=== PATIENT | female | born 2000 | race Caucasian/White ===

== ENCOUNTER 2022-06-30 17:38 | Emergency (ER) | payer OTHER, SELFPAY ==
--- NOTE | 2022-06-30 17:45 | ECG_ITS ---
Test Reason : CHEST PAIN Blood Pressure : / mmHG Vent. Rate : 083 BPM Atrial Rate : 083 BPM P-R Int : 150 ms QRS Dur : 080 ms QT Int : 372 ms P-R-T Axes : 058 019 048 degrees QTc Int : 437 ms Normal sinus rhythm Normal ECG No previous ECGs available Referred By: Generic ED Physician Electronically Signed By:ARRON HADDAD MD
[2022-06-30 19:42] VITALS: BP 190/91; PULSE 88; RESP 20; TEMP 36.3; O2SAT 95; BMI 33.4
[2022-06-30 20:10] LABS: Hematocrit 39.8 % (37.0-47.0); Hemoglobin 13.2 g/dl (12.0-16.0); Mean Corpuscular HGB Conc 33.2 g/dl (31.0-35.0); Mean Corpuscular Hemoglobin 28.6 pg (27.0-33.0); Mean Corpuscular Volume 86.1 fL (80.0-98.0); Mean Platelet Volume 9.4 fL (9.4-12.3); Platelet Count 379 X10*3/uL (160-400); Red Blood Count 4.62 X10*6/uL (4.20-5.50); Red Cell Distribution Width 11.5 % (11.0-16.0); White Blood Count 8.7 X10*3/uL (4.8-10.8)
[2022-06-30 20:25] LABS: Alanine Aminotransferase 19 U/L (0-31); Albumin Level 4.5 g/dL (3.5-5.0); Alkaline Phosphatase 77 U/L (39-117); Anion Gap 17 (12-20); Aspartate Amino Transferase 19 U/L (5-31); Bilirubin Total 0.8 mg/dL (0.0-1.0); Blood Urea Nitrogen 8 mg/dL (9-16); Calcium 9.8 mg/dL (8.4-10.2); Carbon Dioxide 25 mmol/L (22-29); Chloride 103 mmol/L (96-108); Creatinine Clr Calc Pharmacy 146.5; Estimated Glomerular Filt Rate > 60; Glucose Random 95 mg/dL (60-115); Potassium 4.4 mmol/L (3.3-5.1); Sodium 141 mmol/L (135-145); Total Protein 7.3 g/dL (6.5-8.0)
[2022-06-30 20:33] LABS: Troponin-I High Sensitivity < 3.5 ng/L (<3.5-17.0)
[2022-06-30 23:07] VITALS: BP 144/76; PULSE 91; RESP 18; TEMP 36.8; O2SAT 97
--- NOTE | 2022-06-30 23:20 | ED_ITS ---
HPI - Chest Pain General Chief Complaint: Chest Pain Stated Complaint: Chest pain Time Seen by Provider: 06/30/22 23:11 Source: patient Mode of arrival: ambulatory Limitations: no limitations History of Present Illness HPI narrative: Patient history of anxiety in complaining of chest pain for last 2 months with palpitation seen senior technical manager workup is negative today she comes as pain is been there for last 8 hours pain is localized to mid chest no shortness of breath no cough no radiation of the pain feels tight patient not on any control tablets no history of sudden cardiac in family Review of Systems Review of Systems: Yes all other systems are reviewed and are negative [facility] Social History Social History Advance Directives: No Physical Exam Vital Signs: Vital Signs: Last Vital Signs Temp 98.2 F 06/30/22 23:07 Pulse 91 06/30/22 23:07 Resp 18 06/30/22 23:07 BP 144/76 H 06/30/22 23:07 Pulse Ox 97 06/30/22 23:07 O2 Del Method 06/30/22 23:07 BMI result Body Mass Index 33.4 Appearance: Alert. Oriented X3. No acute distress. Eyes: PERRLA, No Nystagmus ENT: Pharynx normal. Oral Mucosa moist Neck: Normal inspection. Neck supple. CVS: Normal heart rate and rhythm. Pulses normal. No murmur or rub Respiratory: No respiratory distress. Equal air entry bilateral, no wheezing/rales/rhonchi mid chest wall tenderness+ Abdomen: Soft and nontender. Bowel sounds are present, no mass palpable, no CVA tenderness Skin: Skin warm and dry. Normal skin color. Normal skin turgor. Extremities: No lower extremity edema. No calf tenderness Neuro: Oriented X 3. MDM - Chest Pain MDM Narrative Medical decision making narrative: Which were atypical chest pain heart score is 0 labs negative EKG normal discharge patient home Differential Diagnosis Differential diagnosis: Likely atypical chest pain Lab Data Attestation: I reviewed the patient's lab results. Result diagrams: 06/30/22 19:53 06/30/22 19:53 Labs: Lab Results 06/30/22 06/30/22 06/30/22 Range/Units 19:53 19:53 19:53 WBC 8.7 (4.8-10.8) X10*3/uL RBC 4.62 (4.20-5.50) X10*6/uL Hgb 13.2 (12.0-16.0) g/dl Hct 39.8 (37.0-47.0) % MCV 86.1 (80.0-98.0) fL MCH 28.6 (27.0-33.0) pg MCHC 33.2 (31.0-35.0) g/dl RDW 11.5 (11.0-16.0) % Plt Count 379 (160-400) X10*3/uL MPV 9.4 (9.4-12.3) fL Absolute Nucleated RBC 0.000 (0.0-0.012) X10*3/uL Nucleated RBC % (auto) 0.0 (0.0-0.2) /100WBC Sodium 141 (135-145) mmol/L Potassium 4.4 (3.3-5.1) mmol/L Chloride 103 (96-108) mmol/L Carbon Dioxide 25 (22-29) mmol/L Anion Gap 17 (12-20) BUN 8 L (9-16) mg/dL Creatinine 0.75 (0.5-1.4) mg/dL Estim Creat Clear Calc 146.5 Estimated GFR > 60 Random Glucose 95 (60-115) mg/dL Calcium 9.8 (8.4-10.2) mg/dL Total Bilirubin 0.8 (0.0-1.0) mg/dL AST 19 (5-31) U/L ALT 19 (0-31) U/L Alkaline Phosphatase 77 (39-117) U/L Troponin I High Sens < 3.5 (<3.5-17.0) ng/L Total Protein 7.3 (6.5-8.0) g/dL Albumin 4.5 (3.5-5.0) g/dL ECG Data ECG #1: Attestation: I personally reviewed and interpreted this ECG as follows: Interpretation: Normal sinus rhythm heart rate 83 beats per minute normal intervals normal axis no acute ST-T changes no acute ischemia Discharge Plan Discharge Clinical Impression: Atypical chest pain Patient Disposition: Home, Self-Care Instructions: Chest Pain (ED) Additional Instructions: Your pain is not from the heart likely musculoskeletal Follow with PCP/senior technical manager
--- OUTSIDE RECORDS SUMMARY | 2022-06-30 23:32 | XMS_ITS | Continuity of Care Document ---
:2000 Author Organization [facility] Care Team Providers Name Role Phone [facility] Unavailable Unavailable Problems Combined list of problems from Department of Defense and Veterans Affairs facilities. It does not include entries that were removed or entered in error. Problem Status Onset Problem Type Date of Comments Source Date Resolution Generalized Active Condition DoD anxiety 9 disorder Major Active Condition DoD depressive 9 disorder, recurrent, unspecified Problems of Active Condition DoD adjustment to 9 life-cycle transitions Major Active Condition DoD depressive 9 disorder, recurrent, mild Major Active Condition DoD depressive 8 disorder, single episode, moderate visit for: Inactive Condition DoD follow-up exam joint pain Active Condition DoD fingers Brace Inactive Condition DoD closed fracture Inactive Condition DoD thumb proximal phalanx right proximal physis eye pain Inactive Condition DoD eye symptoms Inactive Condition DoD headache Inactive Condition DoD myalgia and Active Condition DoD myositis other specified Inactive Condition DoD viral disease visit for: Active Condition DoD routine eye exam abdominal pain Active Condition DoD astigmatism Active Condition DoD refractive Active Condition DoD error - myopia atypical chest Inactive Condition Esophageal D oD pain scar tissue vs. cardiac etiology. CXR in ER normal. EKG in ER read as normal although do not have a copy here. EKG obtained in clinic with sinus arrhythmia. Uncertain if EKG has evidence of mobitz I heart block as pt has prolonged R-R intervals which may represent dropped beats. Neg troponin reassuring against ischemic insult. Will also obtain UGI to evaulate for any esophageal abnormalities given pt's h/o foreign body in esophagus. Pain most likely not respiratory in origin given no h/o asthma and no respiratory symptoms. chest pain or Active Condition DoD discomfort pediculosis Active Condition 7 yo female DoD capitis with chronic lice infestation. Will try Ovide lotion and repeat in 1-2 weeks if necessary. Discussed importance of combing out nits first then applying lotion and recombing. Also discussed importance of laudering in hot water cycle. Will treat mother and sister as well (neither have allergies tomedications). Given RX for civilian pharmacy as Ovide not available at [facility] main pharmacy. Will consider Bactrim if fails to responds to double course of Ovide therapy. Need For Inactive Condition DoD Vaccination Hepatitis A Need For Inactive Condition DoD Vaccination Chickenpox (Active) visit for: 4-6 Inactive Condition A: Alexis is DoD year visit a well 6 year old girl. No medical or physical/mental developmental concerns at this time. Given family history of mild allergies in Mom and sister, will monitory at well child visits for allergy symptoms, but none reported at this time. joint pain, Active Condition DoD localized in the hip diarrhea Inactive Condition DoD pharyngitis Inactive Condition Hx suggestive D oD of strep given prolonged sore throat with abd pain/diarrhea and absence of cough/URI sxs plus sick contacts, though exam less convincing. Will send culture and call parents with results and abx if indicated. Discussed supportive care, includ Preventive Inactive Condition Foreign body DoD Medicine right ear canal, Established to ENT for Patient Checkup removal Child 5-11 immediately Years after Peds visit.School forms completed. foreign body Inactive Condition small bead DoD ear removed from RIght eac no other foreign bodies seen- f/u prn Allergies, Adverse Reactions, Alerts Combined list of allergies from Department of Defense and Veterans Affairs facilities. It does not include entries that were removed or entered in error. Substance Category Reaction Severity Reaction Status Date Comments S ource type Reported No Known Drug Drug active 04/11/2008 [facility] Allergies allergy allergy Immunizations Combined list of available immunizations from the Department of Defense and Veterans Affairs facilities. Immunization Series Date Administered Site Reaction Lot CVX Drug St atus Comments Source Given By Number Code Beef Grader Influenza, 11/10/ KIM, () Not I nfluenza DoD injectable, 2019 Given , MDCK, injectabl quadrivalent, e, MDC K, preservative quadriv al ent, preservat mikey meningococcal 2 04/12/ JORDY, [id number] 163 SmithKline c omplet meningoco DoD B vaccine, 2018 ALONSO Gayle (SKB) ed ccal B recombinant, vaccine , OMV, recombina adjuvanted nt, OMV, adjuvante d Human 2 04/12/ JORDY, [id number] 165 Merck (MSD) complet Human DoD Papillomaviru 2018 ALONSO Sánchez ed Pa pilloma s 9-valent virus vaccine 9-valent vaccine hepatitis A 1 04/12/ JORDY, [id number] 83 SmithKline compl et hepatitis DoD vaccine, 2019 ALONSO Sánchez (SKB) ed A pediatric/ado vaccin e, lescent pediatric dosage, 2 /adolesce dose schedule nt dosage, 2 dose schedule rabies 3 01/19/ JORDY, [id number] 18 Sanofi complet rabi es DoD vaccine, for 2019 ALONSO Sánchez Pasteur ([facility]) e d vaccine, intramuscular for injection intramusc RETIRED CODE ular injection RETIRED CODE rabies 2 01/11/ BUCKSON, [id number] 18 Sanofi complet rabi es DoD vaccine, for 2019 ARLENE-ANTONO Pasteur ([facility] ) ed vaccine, intramuscular for injection intramusc RETIRED CODE ular injection RETIRED CODE rabies 1 01/07/ BUCKSON, [id number] 18 Sanofi complet rabi es DoD vaccine, for 2019 ARLENE-ANTONO Pasteur ([facility] ) ed vaccine, intramuscular for injection intramusc RETIRED CODE ular injection RETIRED CODE rabies 2 Transcribed complet rabi es DoD vaccine, for 2019 ([facility]) ed vaccine , intramuscular for injection intramusc RETIRED CODE ular injection RETIRED CODE Human 1 11/25/ SAHA, HASMUKH [id number] 165 Merck (MSD) comp let Human DoD Papillomaviru 2019 M ed Papill marv s 9-valent virus vaccine 9-valent vaccine Influenza, 1 11/25/ MARIA A, HASMUKH [id number] 150 SmithKline co mplet Influenza DoD injectable, 2019 M (SKB) ed , quadrivalent, inject abl preservative e, free quadrival ent, preservat mikey free meningococcal 1 11/25/ HASMUKH SAHA [id number] 163 SmithKli ne complet meningoco DoD B vaccine, 2019 M A (SKB) ed ccal B recombinant, vaccine , OMV, recombina adjuvanted nt, OMV, adjuvante d meningococcal 1 11/25/ HASMUKH SAHA [id number] 136 Novartis complet meningoco DoD oligosacchari 2019 M Pharmaceutica ed ccal de (groups A, l Gladis. (NOV) oligosacc C, Y and haride W-135) (groups diphtheria A, C, Y toxoid and conjugate W-135) vaccine diphtheri (MCV4O) a toxoid conjugate vaccine (MCV4O) meningococcal 1 12/01/ KRISTI, [id number] 114 Sanofi compl et meningoco DoD polysaccharid 2016 JEFFERY Castro (PM C) ed ccal e (groups A, polysac ch C, Y and aride W-135) (groups diphtheria A, C, Y toxoid and conjugate W-135) vaccine diphtheri (MCV4P) a toxoid conjugate vaccine (MCV4P) tetanus 1 12/01/ KRISTI, [id number] 115 SmithKline complet t etanus DoD toxoid, 2017 JEFFERY (SKB) ed toxoi d, reduced reduced diphtheria diphtheri toxoid, and a toxoid , acellular and pertu is acellular vaccine, pertussis adsorbed vaccine, adsorbed tuberculin 1 12/01/ KRISTI, [id number] 96 Sanofi complet tuberculi DoD skin test; 2016 JEFFERY Castro (PMC) ed n skin purified test; protein purified derivative protein solution, derivativ intradermal e solution, intraderm al hepatitis A 1 LOIS, [id number] 31 Merck (MSD) com plet hepatitis DoD vaccine, 2006 ANTWORN D ed A pediatric vaccine, dosage, pediatric unspecified dosage, formulation unspecif i ed formulati on varicella LOIS, [id number] 21 Merck (MSD) compl et varicella DoD virus vaccine 2006 ANTWORN D ed vi ashutosh vaccine Encounters Combined list of: 1) Encounters from Department of Veterans Affairs facilities going back up to the last 18 months. 2) Encounters from the Department of Defense facilities going back up to 280 months. Location Location Encounter Encounter Reason Attending ADM MT Stat us Disposition Source Details Type Number For Provider Date Date Visit OUTPATIENT [id number] school NIMIT, 04/22 Released w/o [facility]( physicamee THURSTON C Limitations Pe d l per Ref[facility] pt l Cl mother; BE) will bring prime paperwo rk. OUTPATIENT [id number] PENELOPE, 04/22 Released w/o [facility]( ARRON S /2005 Limitations Otolar y ngology Clinic [place] [facility]) OUTPATIENT [id number] PT KENNEDY, 08/11 Released w/o [facility]( EXPOSED ANDRESSA HURDEN /2005 Limitations P ed TO [facility] STREP l Cl AT BE) SCHOOL PER MOM, AND HAS SOME SYMTOMS OF COLD DIRECT TO [id number] MARIA A, 12/21 12/21 DISCHARGE D [facility] VERITO P /2006 HOME MTF FROM OTHER THAN ER OR [facility] OUTPATIENT [id number] PAIN STUMP, 02/23 Released w/o [facility]( WALKING NICHOLAS Limitations Ped /SIDE CK [facility] PAIN l Cl PER PT BE) MOM. OUTPATIENT [id number] 6 YR LABOW, 04/29 Released w/o [facility]( WELL PAT C Limitations Ped CHILD/S Referra CHOOL l Cl PER MOM BE) OUTPATIENT [id number] MONTALVO, 04/29 Released w/o [facility]( CASH C Limitations Immun iz ation [place] [facility]) OUTPATIENT [id number] head TL, 12/30 Relea sed w/o [facility]( lice HEMANT SINKS Limitations Ped per pt [facility] mom.... l Cl . BE) TELE [id number] ED f/u JOSE, 03/30 [facility]( CONSULT OZZY Ped E. Referra l Cl BE) OUTPATIENT [id number] chest JENNY, 04/07 Released w/ o [facility]( pain NATHAN Limitations Ped f/u per VALLEAU Referra mom l Cl BE) OUTPATIENT [id number] eye OLE, 05/16 Releas ed w/o [facility]( exam SYDNI Limitations Opto met ry Clinic [place] [facility]) OUTPATIENT [id number] C/L FU OLE, 06/15 Relea sed w/o [facility]( SYDNI Meredith Limitations Opto met ry Clinic [place] [facility]) OUTPATIENT [id number] STOMACH FARIAS, 06/21 Relea sed w/o [facility]( ISSUES YASHIRA Limitations Ped PER MOM Referra l Cl BE) OUTPATIENT [id number] STOMACH SCHOENDORF 08/16 Rel eased w/o [facility]( ISSUES MAGDALENE Limitations Ped PER PT C [facility]erra MOM l Cl BE) OUTPATIENT [id number] STOMACH TYLER, 09/20 Released w/o [facility]( AID PER ANA Limitations Pe d MOM L [facility] l Cl BE) OUTPATIENT [id number] routine RYAN, 01/17 Release d w/o [facility]( RAVINDER Limitations Optome t VINCENT ry Clinic [place] [facility]) OUTPATIENT [id number] Eye FREED, 10/04 Released w/o [facility]( exam-Vi JULIO H Limitations Op tanja jaimes ry changes Clinic [place] [facility]) OUTPATIENT [id number] fever CONNORZER, 05/22 Released w/o [facility]( per pt AISHWARYA L. Limitations Ped mom Referra l Cl BE) OUTPATIENT [id number] headach SIFUENTES, 10/09 Releas ed w/o [facility]( ecs and DYLLAN E Limitations Pe d woozy Referra perpt l Cl mtoher BE) OUTPATIENT [id number] eye GIRDHER, 01/15 Release d w/o [facility]( exam LEYDI Limitations Optome t ry Clinic [place] [facility]) TELE [id number] Possibl ROMEO, 03/31 [facility]( CONSULT e eye YAMILET Ped injury Referra l Cl BE) OUTPATIENT [id number] eye YETTO, 04/07 Released w/o [facility]( issues CARLITA Limitations Ped per pt Referra mother l Cl BE) OUTPATIENT [id number] EYE SIFUENTES, 02/04 Released w/o [facility]( PROBLEM DYLLAN Limitations Pe d Referra l Cl BE) OUTPATIENT [id number] Astigma ADAM, 02/16 Releas ed w/o [facility]( tism JESSA Limitations Optome t ry Clinic [place] [facility]) OUTPATIENT [id number] STOMACH LONGACRE, 03/30 Rele ased w/o [facility]( PAIN SARAI Limitations Ped LESIA Referra l Cl BE) OUTPATIENT [id number] Notes BHUMIKA, 12/19 Released w /o [facility]( Entered CARLITA Limitations Or thope by: W tio Glover TCHANDLER [facility] 14 a) Dec 2012 1154 ------- ------- ------- ------- -- ER Consult OUTPATIENT [id number] rashida RAMIREZ, 12/27 Release d w/o [facility]( II IVÁN K Limitations Ort hope fractur dic e 1st Cast pip [place] [facility]) OUTPATIENT [id number] f/u INDIA, 01/17 Releas ed w/o [facility]( AMADOR Limitations Ort hope dic Cast [place] [facility]) OUTPATIENT [id number] Notes LOIS, 01/17 Releas ed w/o [facility]( Entered OSMAR P Limitations Orth josias by: cs Cl TIVEY-A BE) YANA THERESA 17 Jan 2013 0751 ------- ------- ------- ------- -- thumb spica splint OUTPATIENT [id number] right PADMA GALINDO 10/12 Relea sed w/o [facility]( hand Limitations Ped Med thumb Home pain Blue BE) OUTPATIENT [id number] follow ELOINA, 10/27 Release d w/o [facility]( up TAMI Limitations Ped Me d sprang Home Blue BE) OUTPATIENT [id number] joint LOIS, 11/08 Releas ed w/o [facility]( pain JONATHAN Limitations Ort hope fingers dic Peds [facility] [facility]) OUTPATIENT [id number] splint AMRIELENA, 11/08 Rele ased w/o [facility]( for Limitations Occupat thumb ional Therapy [place] [facility]) OUTPATIENT [id number] sleep PORTIA, 06/30 Release d w/o [facility]( referra KELLY Limitations Ped Med l / Home having Blue problem BE) with sleepin g OUTPATIENT [id number] sore GROOMES, 08/10 Release d w/o [facility]( throat RICO Limitations Ped Med Home Blue BE) OUTPATIENT [id number] congest YVONNE, 07/25 Releas ed w/o [facility]( ion,lac STEVE /2015 Limitations Pe d Med k of L Home engergy Blue BE) OUTPATIENT [id number] headach PADMA GALINDO 09/13 Rel eased w/o [facility]( es Limitations Ped Med Home Blue BE) TELE [id number] PADMA Otoole 10/24 [facility] Entered Ped Med by: Amee Duenas BE) Oct 2015 1138 ------- ------- ------- ------- -- ED follow up OUTPATIENT [id number] Food in ELICEO, 10/30 Relea sed w/o [facility]( esophag Limitations Ped us DOS SANTOS Gastro causing Cl BE) other injury, subsequ ent encount er OUTPATIENT [id number] sports TOMA, 11/13 Released w/o [facility]( physica WITZARD Limitations Ped Med l exam Home Blue BE) TELE [id number] [facility] ( CONSULT Ped DOS SANTOS Gastro Cl BE) OUTPATIENT [id number] jorge MARINELLI, 12/12 Release d w/o [facility]( pain SAMIRA Limitations Ped Med Home Blue BE) TELE [id number] PADMA Otoole 04/14 [facility]( CONSULT Entered Ped Med by: Home Amee GALINDO M 08 BE) Apr 2016 1058 ------- ------- ------- ------- -- ED follow up TELE [id number] Erik FRIAS 05/06 [facility]( CONSULT Entered Ped Med by: Home MOISESIMATyree SHELDON N BE) 06 May 2016 0943 ------- ------- ------- ------- -- ED F/U OUTPATIENT [id number] ER RODRIGUEZ, 06/02 Released w /o [facility]( follow MITALI J Limitations Ped Med up Home Blue BE) OUTPATIENT [id number] PADMA Duarte 08/07 Rel eased w/o [facility]( s in Limitations Ped Med limbs Home Blue BE) OUTPATIENT [id number] sick/ BARTH, 11/06 Released w/o [facility]( cold PRIYANKA Limitations Ped M ed Home Blue BE) TELE [id number] PADMA Otoole 11/24 [facility]( CONSULT Entered Ped Med by: Home Amee GALINDO M 20 BE) Nov 2016 1100 ------- ------- ------- ------- -- ED follow up OUTPATIENT [id number] follow RODRIGUEZ11/27 Released w/o [facility]( up from [facility] Limitations Ped Med bad Home cough Red BE) (cough for over a month) TELE [id number] Erik ARCHER, 11/27 Referred for [facility]( CONSULT Entered CLIFF Appointment Ped Med by: Home JEAN Al BE) Gerald HESTER 27 Nov 2016 1258 ------- ------- ------- ------- -- Patient NO SHOW appt; Resched ule came late. OUTPATIENT [id number] [facility] KRISTI, 12/01 Release d w/o [facility]( ARLENE- Limitations Imm uniz NO ation Clinic Be) TELE [id number] Erik FRIAS 12/02 [facility]( CONSULT Entered SMOCK Ped Med by: Home RODRIGUEZ, Red BE) [facility] 02 Dec 2016 1013 ------- ------- ------- ------- -- Follow up labs TELE [id number] Erik FRIAS 12/05 [facility]( CONSULT Entered SMOCK Ped Med by: Home RODRIGUEZ, Red BE) [facility] 05 Dec 2016 0939 ------- ------- ------- ------- -- Follow up labs TELE [id number] Erik AVILES 12/05 [facility] ( CONSULT Entered LEIGH Comm by: [facility]/ TRACI Prev ,STEPHE Med Cl N L BE) Nov 2016 1001 ------- ------- ------- ------- -- Leanna friasi emma OUTPATIENT [id number] PADMA Ewing 04/02 Rel eased w/o [facility]( l Limitations Ped Med (double Home booked/ Blue teen) BE) TELE [id number] PADMA Otoole 04/09 [facility] CONSULT Entered Ped Med by: Amee Duenas M BE) Apr 2017 1429 ------- ------- ------- ------- -- Lab results TELE [id number] Notes KAMILLE, 07/09 [facility]( CONSULT Entered Ped M ed by: Tyree Gaspar ASIYA MCKEE) B 09 Jul 2017 1516 ------- ------- ------- ------- -- Referra l Request by Asiya Pena OUTPATIENT [id number] ana m SALMONYVES, 07/10 Rel eased w/o [facility]( d about CARLITA Limitations Ped Med school Home Red BE) OUTPATIENT [id number] PADMA GALINDO 09/08 Relea sed w/o [facility]( annual Limitations Ped Med well Home visit Blue BE) OUTPATIENT [id number] myrna FENTON, 11/10 Relea sed w/o [facility]( hilic Limitations Ped esophag DOS SANTOS Gastro itis Cl BE) TELE [id number] ELICEO, 02/05 [facility] ( CONSULT Ped DOS SANTOS Gastro Cl BE) OUTPATIENT [id number] right HACKETT, 03/19 Released w/o [facility]( ankle CARLOS Limitations Ped M ed sprain Home Red BE) TELE [id number] Erik JACKSON, 10/05 [facility]( CONSULT 5 Entered DANIELLE J Psychia by: JANNY Byers [place] Sep) 2018 1151 ------- ------- ------- ------- -- Called to resched miguel d/t weather OUTPATIENT [id number] sports ROMEO, 11/25 Released w/o [facility]( 5 physica YAMILET D Limitations Adol esc l with ent royce gayle) OUTPATIENT [id number] MARIA A, 11/25 Released w/o [facility]( 2 HASMUKH Limitations Immuni z ation Clinic Be) TELE [id number] Erik LAWRENCE, 01/07 [facility]( CONSULT 7 Entered Adolesc by: RAÚL Cerna 07 Jan 2019 0850 ------- ------- ------- ------- -- Er Visit 019 DOG BITE (ICD9: E906.0) see note OUTPATIENT [id number] KRISTI, 01/07 Release d w/o [facility]( 3 ARLENE- Limitations Imm uniz NO ation Clinic Be) OUTPATIENT [id number] general VIRGIE, 01/10 Rel eased w/o [facility]( 1 health DYLLAN Limitations Adole sc check/c ent holesto [place] ral a) check OUTPATIENT [id number] TATYANALUIZ, 01/11 Release d w/o [facility]( 4 ARLENE-ANT Limitations Imm uniz NO ation Clinic Be) OUTPATIENT [id number] left VAL, 01/14 Released w/o [facility]( 4 quad NAZ Limitations Ado lesc muscle ent pain/li [place] mping a) this week but happend last week OUTPATIENT [id number] JORDY, 01/19 Release d w/o [facility]( 2 ALONSO M Limitations Immu jefe ation Clinic Be) OUTPATIENT [id number] allergi MIRIAM, 01/21 Rel eased w/o [facility]( 0 c SERA K Limitations Aller gy reactio Clinic n to [facility] foods - a) airway swellin g and tinglin g of oral mucosa TELE [id number] Notes MIRIAM, 01/25 [facility]( CONSULT 6 Entered Allergy by: Clinic HERB [place] MIHAELA a) Y 25 Jan 2019 1514 ------- ------- ------- ------- -- patient called, she had stop taken her meds, but she having hives. Please call. TELE [id number] Notes NEAL, 02/28 [facility]( CONSULT 4 Entered Adole sc by: ent RAÚL Maradiaga) M 28 Feb 2019 0835 ------- ------- ------- ------- -- ER Visit 019 right wrist dog bite/ wrist contusi on see note TELE [id number] Notes HOWARD, 03/25 [facility]( CONSULT 7 Entered Adolesc by: VINITA Lindsay 25 Mar 2019 1435 ------- ------- ------- ------- -- Rx refill (Zyrtec ) OUTPATIENT [id number] JORDY, 04/12 Release d w/o [facility]( 7 ALONSO Limitations Immu jefe ation Clinic Be) OUTPATIENT [id number] discuss MANDO, 08/05 Releas ed w/o [facility]( 4 IUD BASSAM Limitations Adol esc ent [place] [facility]) OUTPATIENT [id number] iud MANDO, 09/12 Released w/o [facility]( 6 placeme BASSAM Limitations Ad olesc nt ent [place] [facility]) OUTPATIENT [id number] Notes LEW, 12/05 Released w/o [facility]( 1 Entered DAVID Limitations War by: [facility] [place] HACKETT YBIL M Non-GWO Nov 1004 ------- ------- ------- ------- -- Case Managem ent Screeni ng - Re: CM Registr y Procedures Combined list of: 1) Procedures from Department of Veterans Affairs facilities going back up to the last 18 months, not all VA non-surgical procedures are included; 2) All procedures from the Department of Defense facilities. Procedure Procedure Type Code Date Perfomer Comments Sourc e Psychotherapy Psychotherapy 9387002/11/ LOI, MAYCOL DoD Individual Individual 2017 B Approximately 60 Approximately 60 Minutes Minutes Psychotherapy Psychotherapy 4471801/28/ LOI, MAYCOL [employer] Interactive 2017 B Complexity Complexity Psychotherapy Psychotherapy 1361901/28/ LOI, MAYCOL DoD Individual Individual 2017 B Approximately 60 Approximately 60 Minutes Minutes Psychometric Psychometric 82331 01/28/ MADAY DoD Emotional / Emotional / 2017 OMAR R Behavioral A e ment Behavioral Assessment Psychotherapy Indiv Psychotherapy Indiv 79247 MADAY DoD Approx 45 Min W/ Approx 45 Min W/ 2017 OMAR Kim Medical Evaluation Medical Evaluation & Management & Management Psychotherapy Psychotherapy 1692901/20/ LOI, MAYCOL DoD Interactive Interactive 2017 B Complexity Complexity Psychotherapy Psychotherapy 0847701/20/ STOMKIN, MAYCOL DoD Individual Individual 2018 B Approximately 60 Approximately 60 Minutes Minutes Psychotherapy Psychotherapy 64588 01/15/ STOMKIN, MAYCOL [facility] Interactive Interactive 2018 B Complexity Complexity Psychotherapy Psychotherapy 82991 01/15/ STOMKIN, MAYCOL DoD Individual Individual 2018 B Approximately 60 Approximately 60 Minutes Minutes Psychotherapy Psychotherapy 25545 12/18/ STOMKIN, MAYCOL [facility] Interactive Interactive 2018 B Complexity Complexity Psychotherapy Psychotherapy 45126 12/18/ STOMKIN, MAYCOL DoD Individual Individual 2018 B Approximately 60 Approximately 60 Minutes Minutes Psychometric Psychometric 90113 12/15/ MADAY, DoD Emotional / Emotional / 2018 OMAR R Behavioral A e ment Behavioral Assessment Psychotherapy Psychotherapy 23126 MADAY, Do D Individual Approx Individual Approx 2018 OMAR R 30 Min W/ Medical 30 Min W/ Medical Evaluation & Evaluation & Management Management Psychotherapy Psychotherapy 76429 12/04/ STOMKIN, MAYCOL DoD Individual Individual 2018 B Approximately 60 Approximately 60 Minutes Minutes Psychotherapy Psychotherapy 31538 11/20/ STOMKIN, MAYCOL DoD Individual Individual 2018 B Approximately 60 Approximately 60 Minutes Minutes Psychotherapy Psychotherapy 08421 11/13/ STOMKIN, MAYCOL DoD Individual Individual 2018 B Approximately 60 Approximately 60 Minutes Minutes Psychotherapy Psychotherapy 30958 11/11/ STOMKIN, MAYCOL DoD Individual Individual 2018 B Approximately 60 Approximately 60 Minutes Minutes Psychometric Psychometric 24452 MADAY, DoD Emotional / Emotional / 2017 OMAR R Behavioral A e ment Behavioral Assessment Psychotherapy Psychotherapy 81561 MADAY Do D Individual Approx Individual Approx 2018 OMAR R 30 Min W/ Medical 30 Min W/ Medical Evaluation & Evaluation & Management Management Psychotherapy Psychotherapy 58839 10/23/ STOMKIN, MAYCOL DoD Individual Individual 2018 B Approximately 60 Approximately 60 Minutes Minutes Psychometric Psychometric 73226 MADAY, DoD Emotional / Emotional / 2018 OMAR R Behavioral A e ment Behavioral Assessment Psychotherapy Psychotherapy 05364 10/21/ MADAY Do D Individual Approx Individual Approx 2018 OMAR R 30 Min W/ Medical 30 Min W/ Medical Evaluation & Evaluation & Management Management Psychotherapy Psychotherapy 50472 10/16/ STOMKIN, MAYCOL DoD Individual Individual 2018 B Approximately 60 Approximately 60 Minutes Minutes Psychotherapy Psychotherapy 40204 10/09/ STOMKIN, MAYCOL DoD Individual Individual 2018 B Approximately 60 Approximately 60 Minutes Minutes Psychotherapy Psychotherapy 27483 10/02/ STOMKIN, MAYCOL DoD Individual Individual 2018 B Approximately 60 Approximately 60 Minutes Minutes Psychometric Psychometric 13126 10/02/ MADAY, DoD Emotional / Emotional / 2018 OMAR R Behavioral A e ment Behavioral Assessment Psychiatric Psychiatric 67198 10/02/ Maxim NASSAR Diagnostic Diagnostic 2018 OMAR R Evaluation With Evaluation With Medical Evaluation Medical Evaluation And Management And Management Psychotherapy Psychotherapy 77998 09/25/ STOMKIN, MAYCOL [facility] Individual Individual 2018 B Approximately 60 Approximately 60 Minutes Minutes [facility] Medical 56200 09/22/ LOI, MAYCOL [facility] Psychotherapy Psychotherapy 2018 B Without Patient Without Patient Present Present Psychotherapy Psychotherapy 69997 09/11/ STOMKIN, [facility] Individual Individual 2017 B Approximately 60 Approximately 60 Minutes Minutes Psychotherapy Psychotherapy 38460 08/27/ STOMKIN, MAYCOL [facility] [facility] Individual Individual 2016 B Approximately 60 Approximately 60 Minutes Minutes Psychotherapy Psychotherapy 54917 08/17/ STOMKIN, [facility] Individual Individual 2016 B Approximately 60 Approximately 60 Minutes Minutes Psychotherapy Psychotherapy 02446 08/13/ STOMKIN, [facility] Individual Individual 2016 B Approximately 60 Approximately 60 Minutes Minutes Psychotherapy Psychotherapy 22601 07/28/ STOMKIN, [facility] Individual Individual 2016 B Approximately 60 Approximately 60 Minutes Minutes Psychiatric Psychiatric 74324 07/16/ LOI, MAYCOL [facility] Diagnostic Diagnostic 2016 B Evaluation Evaluation Skin Test Anergy Skin Test Anergy 31343 KRISTI, IPPD; Series #: [facility] Tuberculin Tuberculin 2016 [employer] 1; .1 mL; ID; Intradermal Intradermal Left Arm; [employer]: [employer]; Lot: [id number]; VIS given. Meningococcal [facility], Meningococcal Do D Polysaccharide 2016 [employer] MCV4P; Serie s Diphtheria Toxoid #: 1; .5 mL; Conjugate Vaccine IM; Left Arm ; g: [employer]; Lot: [id number]; VIS given (Matt: 12/06/2015). Tdap Vaccine Tdap Vaccine 10833 KRISTI, Tdap; Series # : [facility] 2016 [employer] 1; .5 mL; IM; Right Arm; [facility]: [employer]; Lot: [id number]; VIS given (Matt: 10/31/14). Immunization Immunization 18934 [facility] Administration By Administration By 2016 [employer] Injection, One Injection, One Vaccine Vaccine Immunization Immunization 72944 [facility] By Administration By 2016 [employer] Injection, Each Injection, Each Additional Vaccine Additional Vaccine Pulse Oximetry Pulse Oximetry 55798 08/10/ GROANTONIO, DoD 2013 RICO Rivera Rapid Antigen Rapid Antigen 54759 08/10/ Do Viri BURNETTE Detection Detection 2013 RICO Rivera Streptococcus Group Streptococcus Group A Beta Hemolytic A Beta Hemolytic Pulse Oximetry Pulse Oximetry 50685 06/30/ [facility], Maxim 2013 KELLY Gayle Physical Therapy 11/09/ Do Viri PEGUERO Education Orthotics 2013 OTIS Bartlett Training Wrist hand finger 11/09/ Viri PEGUERO oD orthosis, without 2013 OTIS Bartlett joint(s), prefabricated item that has been trimmed, bent, molded, a embled, or otherwise customized to fit a specific patient by an individual with expertise [id number] Do Viri ABREU orthosis, without 2012 OSMAR Conroy joint(s), prefabricated, includes fitting and adjustments, [place] [address] 02/26/ ADAM, [facility] Refractive State Refractive State 2011 JESSA Duarte Ophthalmological Ophthalmological 65971 02/26/ ADAM, [facility] New Patient Start New Patient Start 2011 JESSA Duarte [facility] Ophthalmological Ophthalmological 08407 01/15/ [facility], [facility] Prior Patient Start Prior Patient Start 2010 LEYDI S[facility]chez [facility] [place] [address] 01/15/ [facility], [facility] Refractive State Refractive State 2010 LEYDI Sánchez Ophthalmological Ophthalmological 24992 10/04/ [facility], [facility] Prior Patient Start Prior Patient Start 2009 JULIO Glover Intermediate Level Intermediate [place] [address] FREED, [facility] Refractive State Refractive State 2009 JULIO Ophthalmological Ophthalmological 56053 01/17/ CONNOR [facility] New Patient Start New Patient Start 2008 RAVINDER [facility] [place] [address] 06/15/ OLE, DoD Fitting Bilateral Fitting Bilateral 2007 SYDNI Meredith Corneal Lenses (Not Corneal Lenses (Not For Aphakia) For Aphakia) [place] [address] OLE, DoD Refractive State Refractive State 2007 SYDNI Meredith Ophthalmological Ophthalmological 38128 05/16/ OLE, DoD Prior Patient Start Prior Patient Start 2007 SYDNI Meredith [facility] Electrocardiogram Electrocardiogram 03675 04/07/ Maxim ALVARADO 2007 NATHAN PRUITT Immunization Immunization 63588 04/30/ Maxim MONTALVO Administration By Administration By 2007 CASH C Injection, One Injection, One Vaccine Vaccine Immunization [facility] Administration By 2006 CASH C Injection, Each Additional Vaccine Vaccines Viral Vaccines Viral 17030 MONTALVO, [facility] Varicella (Active) Varicella (Active) 2006 CASH C Hep A Vac Ped/Adol Hep A Vac Ped/Adol 16959 , [facility] Dosage (Intramusc Dosage (Intramusc 2006 CASH C Use) 2 Dose Use) 2 Dose Schedule Schedule Weight Recorded 2006 NICHOLAS CK Doppler Arterial Doppler Arterial 77269 Upper Extremity & Upper Extremity & 2006 NICHOLAS CK Digital Temp Digital Temp Measurement Measurement Psychometric Psychometric 32388 [facility], [facility] Emotional / Emotional / 2018 RODRICK Behavioral A e ment Behavioral T Assessment Psychotherapy Indiv Psychotherapy Indiv 33669 [facility] Approx 45 Min W/ Approx 45 Min W/ 2018 RODRICK Medical Evaluation Medical Evaluation T & Management & Management Hep A Vac Ped/Adol Hep A Vac Ped/Adol 65914 , He p A ped/adol, [facility] Dosage (Intramusc Dosage (Intramusc 2018 ALONSO M 2 do se (18 yrs Use) 2 Dose Use) 2 Dose and younger); Schedule Schedule Series #: 1; 0.5 mL; IM; Right Arm; Mfg: [employer]; Lot: [id number]; VIS given (Matt: 03/26/2016). Meningococcal Meningococcal 00359 , Meningococca l DoD Vaccine B Vaccine B 2018 ALONSO Sánchez B, OMV Recombinant Protein Recombinant Protein (Bexsero); And Outer Membrane And Outer Membrane Se sarahi #: 2; Vesicle Vesicle 0.5 mL; IM; Left Arm; Mfg: [employer]; Lot: [id number]; VIS given (Matt: 04/15/2016). Human Papilloma Human Papilloma 30752 , HPV9; Se sarahi #: DoD Virus Vaccine, Virus Vaccine, 2019 ALONSO M 2; 0.5 mL; IM; Nonavalent Nonavalent Left Arm; Mfg: Merck; Lot: [id number]; VIS given (Matt: 08/08/2016). Immunization Immunization 43106 [facility], [facility] Administration By Administration By 2018 ALONSO M Injection, One Injection, One Vaccine Vaccine Immunization Immunization 92251 [facility], [facility] Administration By Administration By 2018 ALONSO M Injection, Each Injection, Each Additional Vaccine Additional Vaccine Psychotherapy Group Psychotherapy Group 2030302/23/ LOVERN, DoD Interactive Interactive 2018 DANIELLE E Psychotherapy Group Psychotherapy Group 3738302/09/ LOVERN, [facility] Interactive Interactive 2018 DANIELLE E Psychometric Psychometric 17119 01/27/ STOMKIN, MAYCOL D oD Emotional / Emotional / 2018 B Behavioral A e ment Behavioral Assessment Psychotherapy Psychotherapy 2654201/27/ STOMKIN, MAYCOL DoD Individual Individual 2018 B Approximately 60 Approximately 60 Minutes Minutes Psychotherapy Psychotherapy 3207301/27/ STOMKIN, MAYCOL DoD Interactive Interactive 2018 B Complexity Complexity Psychotherapy Group Psychotherapy Group 8172501/26/ STOMKIN, A NN DoD Interactive Interactive 2018 B Psychotherapy Psychotherapy 5593901/21/ STOMKIN, MAYCOL DoD Interactive Interactive 2018 B Complexity Complexity Psychotherapy Psychotherapy 9846501/21/ STOMKIN, MAYCOL DoD Individual Individual 2018 B Approximately 60 Approximately 60 Minutes Minutes Psychometric Psychometric 05473 01/21/ STOMKIN, MAYCOL D oD Emotional / Emotional / 2018 B Behavioral A e ment Behavioral Assessment Psychometric Psychometric 26803 [place], DoD Emotional / Emotional / 2018 CHRISTOPHER Behavioral A e ment Behavioral T Assessment Rabies Vaccine For Rabies Vaccine For JORDY, [facility] Intramuscular Use Intramuscular Use 2018 ALONSO M Intr amuscular; Series #: 3; 1.0 mL; IM; Left Arm; Mfg: Sanofi [employer]; Lot: [id number]; VIS given (Matt: 06/12/2009). Immunization Immunization 20627 [facility], [facility] Administration By Administration By 2018 ALONSO M Injection, One Injection, One Vaccine Vaccine Psychotherapy Indiv Psychotherapy Indiv 9166201/17/ [place], [facility] Approx 45 Min W/ Approx 45 Min W/ 2018 CHRISTOPHER Medical Evaluation Medical Evaluation T & Management & Management Psychotherapy Psychotherapy 4870901/14/ STOMKIN, MAYCOL DoD Interactive Interactive 2018 B Complexity Complexity Psychotherapy Psychotherapy 7318801/14/ STOMKIN, MAYCOL DoD Individual Individual 2018 B Approximately 60 Approximately 60 Minutes Minutes Psychotherapy Group Psychotherapy Group 0425101/12/ STOMKIN, A NN DoD Interactive Interactive 2018 B Rabies Vaccine For Rabies Vaccine For [facility] [place] [facility] Intramuscular Use Intramuscular Use 2018 ARLENE-ANTONO I ntramuscular; Series #: 2; 1.0 mL; IM; Left Arm; Mfg: Sanofi P[employer]; Lot: [id number]; VIS given (Matt: 06/12/2009). Immunization Immunization [facility] [place], [facility] Administration By Administration By 2018 ARLENE-ANTONO Injection, One Injection, One Vaccine Vaccine Rabies Vaccine For Rabies Vaccine For [facility] [place] [facility] Intramuscular Use Intramuscular Use 2018 [facility] I ntramuscular; Series #: 1; 1.0 mL; IM; Right Arm; Mfg: Sanofi P[employer]; Lot: [id number]; VIS given (Matt: 06/12/2009). Immunization [facility]ization [facility] Administration By Administration By 2018 ARLENE-ANTONO Injection, One Injection, One Vaccine Vaccine Psychotherapy Group Psychotherapy Group 12653 12/15/ CARRINGTON [facility] Interactive Interactive 2018 DANIELLE E Psychotherapy Group Psychotherapy Group 93050 12/01/ LOI, A [facility] Interactive Interactive 2018 B Physician Services Physician Services 71170 11/29/ ROMEO [facility] Special Review / Special Review / 2018 D Reporting Of Reporting Of Patient Status Patient Status [place] [address] 11/29/ ROMEO YAMILET [facility] Visual Acuity, Visual Acuity, 2018 D Quantitative, Quantitative, Bilateral Bilateral Psychotherapy Psychotherapy 79273 11/26/ LOI, MAYCOL [facility] Individual Individual 2018 B Approximately 60 Approximately 60 Minutes Minutes Psychotherapy Psychotherapy 29179 11/26/ LOI MAYCOL [facility] Interactive Interactive 2018 B Complexity Complexity Immunization Immunization 1610111/25/ HASMUKH SAHA oD Administration By Administration By 2018 M Injection, One Injection, One Vaccine Vaccine Immunization Immunization 07319 11/25/ HASMUKH SAHA oD Administration By Administration By 2018 M Injection, Each Injection, Each Additional Vaccine Additional Vaccine Human Papilloma Human Papilloma 25545 11/25/ HASMUKH SAHA HPV9; Series #: [facility] Virus Vaccine, Virus Vaccine, 2019 M 1; .5 mL; IM; Nonavalent Nonavalent Right Arm; Mfg: Merck; Lot: [id number]; VIS given (Matt: 08/08/2016). Influenza Split Influenza Split 54465 MARIA A, HASMUKH Influ atif, DoD Virus Vaccine IM Virus Vaccine IM 2019 M Inj., quad., Preserv Free 0.5mL Preserv Free 0.5mL pr eservative Dosage Quadrivalent Dosage Quadrivalent free (Fluarix); Series #: 1; .5 mL; IM; Right Arm; Mfg: [employer]; Lot: [id number]; VIS given (Matt: 04/13/2015). Meningococcal (A, 11/25/ MARIA A, HASMUKH Meningoco ccal [facility] C, Y, W-135) 2019 M MCV4O; Series Oligosacch #: 1; .5 mL; Diphtheria Toxoid IM; Left Arm ; Conj Vacc Mfg: [employer]; Lot: [id number]; VIS given (Matt: 12/06/2015). Meningococcal Meningococcal 21876 MARIA A, HASMUKH Meningoco ccal [facility] Vaccine B Vaccine B 2019 M B, OMV; Series Recombinant Protein Recombinant Protein #: 1; .5 mL; And Outer Membrane And Outer Membrane IM ; Left Arm; Vesicle Vesicle Mfg: [employer]; Lot: [id number]; VIS given (Matt: 04/15/2016). Psychometric Psychometric 15537 MADAY, [facility] Emotional / Emotional / 2018 OMAR R Behavioral A e ment Behavioral Assessment Psychotherapy Psychotherapy 94538 Do MADAY D Individual Approx Individual Approx 2019 OMAR R 30 Min W/ Medical 30 Min W/ Medical Evaluation & Evaluation & Management Management Psychotherapy Group Psychotherapy Group 51845 11/19/ Amee MONSIVAIS NN DoD Interactive Interactive 2018 B Psychotherapy Psychotherapy 58635 11/12/ LOI, MAYCOL DoD Interactive Interactive 2018 B Complexity Complexity Psychotherapy Psychotherapy 4877611/12/ LOI, MAYCOL DoD Individual Individual 2019 B Approximately 60 Approximately 60 Minutes Minutes Psychotherapy Psychotherapy 48546 11/05/ LOI, MAYCOL Maxim Interactive Interactive 2018 B Complexity Complexity Psychotherapy Psychotherapy 6456211/05/ LOI, MAYCOL Maxim Individual Individual 2019 B Approximately 60 Approximately 60 Minutes Minutes Psychometric Psychometric 39950 MADAY, [facility] Emotional / Emotional / 2018 OMAR R Behavioral A e ment Behavioral Assessment Psychotherapy Psychotherapy 40726 Do Viri NASSAR Individual Approx Individual Approx 2019 OMAR R 30 Min W/ Medical 30 Min W/ Medical Evaluation & Evaluation & Management Management Psychometric Psychometric 13320 10/15/ LOI, MAYCOL Viri oD Emotional / Emotional / 2018 B Behavioral A e ment Behavioral Assessment Psychotherapy Psychotherapy 39856 10/15/ STOMKIN, MAYCOL DoD Interactive Interactive 2019 B Complexity Complexity Psychotherapy Psychotherapy 58089 10/15/ STOMKIN, MAYCOL DoD Individual Individual 2019 B Approximately 60 Approximately 60 Minutes Minutes Psychotherapy Psychotherapy 16531 09/24/ STOMKIN, MAYCOL DoD Individual Individual 2019 B Approximately 60 Approximately 60 Minutes Minutes Psychotherapy Psychotherapy 49556 09/24/ STOMKIN, MAYCOL DoD Interactive Interactive 2019 B Complexity Complexity Psychotherapy Psychotherapy 08859 09/17/ STOMKIN, MAYCOL DoD Individual Individual 2019 B Approximately 60 Approximately 60 Minutes Minutes Psychotherapy Psychotherapy 73548 09/17/ STOMKIN, MAYCOL DoD Interactive Interactive 2018 B Complexity Complexity Psychometric Psychometric 33917 09/17/ LOI, MAYCOL Viri oD Emotional / Emotional / 2018 B Behavioral A e ment Behavioral Assessment Psychometric Psychometric 08451 09/10/ STOMFANNIE, MAYCOL Viri oD Emotional / Emotional / 2018 B Behavioral A e ment Behavioral Assessment Psychotherapy Psychotherapy 19750 09/10/ STOMKIN, MAYCOL DoD Interactive Interactive 2019 B Complexity Complexity Psychotherapy Psychotherapy 61780 09/10/ STOMKIN, MAYCOL DoD Individual Individual 2019 B Approximately 60 Approximately 60 Minutes Minutes Psychotherapy Psychotherapy 74115 09/09/ MADAY, Do Viri Individual Approx Individual Approx 2018 OMAR R 30 Min W/ Medical 30 Min W/ Medical Evaluation & Evaluation & Management Management Psychometric Psychometric 59946 09/09/ MADAY DoD Emotional / Emotional / 2018 OMAR R Behavioral A e ment Behavioral Assessment Psychotherapy Psychotherapy 51614 08/27/ STOMKIN, MAYCOL DoD Interactive Interactive 2017 B Complexity Complexity Psychotherapy Psychotherapy 01307 08/27/ STOMKIN, MAYCOL DoD Individual Individual 2018 B Approximately 60 Approximately 60 Minutes Minutes Psychotherapy Psychotherapy 92027 08/18/ STOMKIN, MAYCOL DoD Interactive Interactive 2018 B Complexity Complexity Psychotherapy Psychotherapy 09605 08/18/ STOMKIN, MAYCOL DoD Individual Individual 2017 B Approximately 60 Approximately 60 Minutes Minutes Psychotherapy Psychotherapy 33548 08/06/ STOMKIN, MAYCOL DoD Individual Individual 2018 B Approximately 60 Approximately 60 Minutes Minutes Psychotherapy Psychotherapy 61789 08/06/ STOMKIN, MAYCOL DoD Interactive Interactive 2018 B Complexity Complexity Psychometric Psychometric 50053 08/04/ MADAY, DoD Emotional / Emotional / 2017 OMAR R Behavioral A e ment Behavioral Assessment Psychotherapy Indiv Psychotherapy Indiv 20052 08/04/ MADAY, DoD Approx 45 Min W/ Approx 45 Min W/ 2018 OMAR R Medical Evaluation Medical Evaluation & Management & Management Psychotherapy Psychotherapy 10418 07/23/ STOMKIN, MAYCOL [facility] Individual Individual 2018 B Approximately 60 Approximately 60 Minutes Minutes Psychotherapy Psychotherapy 40967 07/23/ STOMKIN, MAYCOL [facility] Interactive Interactive 2018 B Complexity Complexity Psychotherapy Psychotherapy 09659 07/16/ STOMKIN, MAYCOL [facility] Individual Individual 2018 B Approximately 60 Approximately 60 Minutes Minutes Psychotherapy Psychotherapy 24378 07/16/ STOMKIN, [facility] Interactive Interactive 2018 B Complexity Complexity Psychotherapy Psychotherapy 20452 06/25/ STOMKIN, MAYCOL [facility] Individual Individual 2018 B Approximately 60 Approximately 60 Minutes Minutes Psychotherapy Psychotherapy 82920 06/25/ STOMKIN, [facility] Interactive Interactive 2018 B Complexity Complexity Psychotherapy Psychotherapy 68952 06/09/ STOMKIN, [facility] Interactive Interactive 2018 B Complexity Complexity Psychotherapy Psychotherapy 34197 06/09/ STOMKIN, [facility] Individual Individual 2018 B Approximately 60 Approximately 60 Minutes Minutes Psychotherapy Psychotherapy 29965 06/02/ STOMKIN, [facility] Interactive Interactive 2018 B Complexity Complexity Psychotherapy Psychotherapy 79974 06/02/ STOMKIN, [facility] Individual Individual 2018 B Approximately 60 Approximately 60 Minutes Minutes Psychotherapy Psychotherapy 74730 05/27/ STOMKIN, [facility] Interactive Interactive 2018 B Complexity Complexity Psychotherapy Psychotherapy 75999 05/27/ STOMKIN, [facility] Individual Individual 2018 B Approximately 60 Approximately 60 Minutes Minutes Psychotherapy Psychotherapy 28511 05/19/ STOMKIN, [facility] Individual Individual 2018 B Approximately 60 Approximately 60 Minutes Minutes Psychotherapy Psychotherapy 49844 05/19/ STOMKIN, [facility] Interactive Interactive 2018 B Complexity Complexity Psychotherapy Psychotherapy 04334 05/12/ STOMKIN, [facility] Individual Individual 2018 B Approximately 60 Approximately 60 Minutes Minutes Psychotherapy Psychotherapy 01594 05/12/ STOMKIN, [facility] Interactive Interactive 2018 B Complexity Complexity Psychometric Psychometric 37527 MADAY, DoD Emotional / Emotional / 2018 OMAR R Behavioral A e ment Behavioral Assessment Psychotherapy Psychotherapy 37227 04/22/ MADAY, Do D Individual Approx Individual Approx 2018 OMAR R 30 Min W/ Medical 30 Min W/ Medical Evaluation & Evaluation & Management Management Psychotherapy Psychotherapy 98566 04/09/ STOMKIN, MAYCOL [facility] Individual Individual 2018 B Approximately 60 Approximately 60 Minutes Minutes Psychotherapy Psychotherapy 99936 04/09/ STOMKIN, [facility] Interactive Interactive 2018 B Complexity Complexity Psychotherapy Psychotherapy 21531 03/17/ STOMKIN, MAYCOL [facility] Interactive Interactive 2018 B Complexity Complexity Psychotherapy Psychotherapy 86764 03/17/ STOMKIN, MAYCOL [facility] Individual Individual 2017 B Approximately 60 Approximately 60 Minutes Minutes Psychometric Psychometric 86456 , DoD Emotional / Emotional / 2017 OMAR R Behavioral A e ment Behavioral Assessment Psychotherapy Indiv Psychotherapy Indiv 33414 , DoD Approx 45 Min W/ Approx 45 Min W/ 2017 OMAR R Medical Evaluation Medical Evaluation & Management & Management Psychotherapy Psychotherapy 75509 02/18/ STOMKIN, MAYCOL [facility] Interactive Interactive 2017 B Complexity Complexity Psychotherapy Psychotherapy 63056 02/18/ STOMKIN, MAYCOL [facility] Individual Individual 2018 B Approximately 60 Approximately 60 Minutes Minutes Psychotherapy Psychotherapy 67666 02/11/ STOMKIN, MAYCOL [facility] Interactive Interactive 2017 B Complexity Complexity [employer] Coordinator Services Corporate Wellness Coordinator Services 05338 Regino GILMORE speculum D oD Intrauterine Device Intrauterine Device BASSAM M was inserted (IUD) Insertion (IUD) Insertion and the cervix Hormone-Releasing Hormone-Releasing was identified. Betadine was used to clean the cervix and a sound was used. After cleansing, sounding to a depth of _8_ centimeters, an intrauterine device was inserted per collar setter overlock's protocol. The string was cut to a 3 centimeters length and a sample of the remaining string was given to the patient for later comparison. The patient tolerated the procedure well, without any S/S of vasovagal responses, pain level 1/10, EBL less than 1 ml. The patient agrees to return for fever, severe lower abdominal cramping, heavy bleeding, or purulent discharge. The patient was counseled to check the strings herself monthly to ensure the IUD has not been displaced. Psychotherapy Indiv Psychotherapy Indiv 82149 FLINT, DoD Approx 45 Min W/ Approx 45 Min W/ ALYSSA Medical Evaluation Medical Evaluation T & Management & Management Case Management, DAVID HACKETT [facility] each 15 minutes M Psychiatric Psychiatric 39230 TESSY HACKETT [facility] Diagnostic Diagnostic A Evaluation Review Evaluation Review of Records and of Records and Reports Reports PSYCHIATRIC EVALUATION OF 2020 HOSPITAL RECORDS, OTHER PSYCHIATRIC REPORTS, PSYCHOMETRIC AND/OR PROJECTIVE TESTS, AND OTHER ACCUMULATED DATA FOR MEDICALDIAGNOSTIC PURPOSES CASE MANAGEMENT, EACH 15 MINUTES 2019 PSYCHOTHERAPY, 45 09/19/ Do D MINUTES WITH 2019 PATIENT WHEN PERFORMED WITH AN EVALUATION AND MANAGEMENT SERVICE (LIST SEPARATELY IN ADDITION TO THE CODE FOR PRIMARY PROCEDURE) INSERTION OF INTRAUTERINE DEVICE 2020 (IUD) URINE TEST, BY VISUAL 2019 COLOR COMPARISON METHODS BRIEF EMOTIONAL/BEHAVIORA 2018 L ASSESSMENT (EG, DEPRESSION INVENTORY, ATTENTION-DEFICIT/H YPERACTIVITY DISORDER [ADHD] SCALE), WITH SCORING AND DOCUMENTATION, PER STANDARDIZED INSTRUMENT HUMAN PAPILLOMAVIRUS 2019 VACCINE TYPES 6, 11, 16, 18, 31, 33, 45, 52, 58, NONAVALENT (9VHPV), 2 OR 3 DOSE SCHEDULE, FOR INTRAMUSCULAR USE GROUP PSYCHOTHERAPY (OTHER THAN OF A 2019 MULTIPLE-FAMILY GROUP) GROUP PSYCHOTHERAPY (OTHER THAN OF A 2019 MULTIPLE-FAMILY GROUP) GROUP PSYCHOTHERAPY (OTHER THAN OF A 2019 MULTIPLE-FAMILY GROUP) INTERACTIVE COMPLEXITY (LIST 2019 SEPARATELY IN ADDITION TO THE CODE FOR PRIMARY PROCEDURE) IMMUNIZATION ADMINISTRATION 2019 (INCLUDES PERCUTANEOUS, INTRADERMAL, SUBCUTANEOUS, OR INTRAMUSCULAR INJECTIONS); 1 VACCINE (SINGLE OR COMBINATION VACCINE/TOXOID) PSYCHOTHERAPY, 45 D MINUTES WITH 2019 PATIENT WHEN PERFORMED WITH AN EVALUATION AND MANAGEMENT SERVICE (LIST SEPARATELY IN ADDITION TO THE CODE FOR PRIMARY PROCEDURE) INTERACTIVE COMPLEXITY (LIST 2019 SEPARATELY IN ADDITION TO THE CODE FOR PRIMARY PROCEDURE) GROUP PSYCHOTHERAPY (OTHER THAN OF A 2019 MULTIPLE-FAMILY GROUP) INTERACTIVE COMPLEXITY (LIST 2019 SEPARATELY IN ADDITION TO THE CODE FOR PRIMARY PROCEDURE) RABIES VACCINE, FOR INTRAMUSCULAR USE 2019 RABIES VACCINE, FOR INTRAMUSCULAR USE 2019 RABIES VACCINE, FOR INTRAMUSCULAR USE 2019 GROUP PSYCHOTHERAPY (OTHER THAN OF A 2019 MULTIPLE-FAMILY GROUP) GROUP PSYCHOTHERAPY (OTHER THAN OF A 2019 MULTIPLE-FAMILY GROUP) INTERACTIVE COMPLEXITY (LIST 2019 SEPARATELY IN ADDITION TO THE CODE FOR PRIMARY PROCEDURE) INFLUENZA VIRUS VACCINE, 2019 QUADRIVALENT (IIV4), SPLIT VIRUS, PRESERVATIVE FREE, 0.5 ML DOSAGE, FOR INTRAMUSCULAR USE SPECIAL REPORTS SUCH INSURANCE 2019 FORMS, MORE THAN THE INFORMATION CONVEYED IN THE USUAL MEDICAL COMMUNICATIONS OR STANDARD REPORTING FORM BRIEF EMOTIONAL/BEHAVIORA 2018 L ASSESSMENT (EG, DEPRESSION INVENTORY, ATTENTION-DEFICIT/H YPERACTIVITY DISORDER [ADHD] SCALE), WITH SCORING AND DOCUMENTATION, PER STANDARDIZED INSTRUMENT INTERACTIVE COMPLEXITY (LIST 2018 SEPARATELY IN ADDITION TO THE CODE FOR PRIMARY PROCEDURE) INTERACTIVE COMPLEXITY (LIST 2018 SEPARATELY IN ADDITION TO THE CODE FOR PRIMARY PROCEDURE) BRIEF EMOTIONAL/BEHAVIORA 2018 L ASSESSMENT (EG, DEPRESSION INVENTORY, ATTENTION-DEFICIT/H YPERACTIVITY DISORDER [ADHD] SCALE), WITH SCORING AND DOCUMENTATION, PER STANDARDIZED INSTRUMENT BRIEF EMOTIONAL/BEHAVIORA 2018 L ASSESSMENT (EG, DEPRESSION INVENTORY, ATTENTION-DEFICIT/H YPERACTIVITY DISORDER [ADHD] SCALE), WITH SCORING AND DOCUMENTATION, PER STANDARDIZED INSTRUMENT INTERACTIVE COMPLEXITY (LIST 2018 SEPARATELY IN ADDITION TO THE CODE FOR PRIMARY PROCEDURE) BRIEF EMOTIONAL/BEHAVIORA 2018 L ASSESSMENT (EG, DEPRESSION INVENTORY, ATTENTION-DEFICIT/H YPERACTIVITY DISORDER [ADHD] SCALE), WITH SCORING AND DOCUMENTATION, PER STANDARDIZED INSTRUMENT PSYCHOTHERAPY, 30 09/09/ Do D MINUTES WITH 2018 PATIENT WHEN PERFORMED WITH AN EVALUATION AND MANAGEMENT SERVICE (LIST SEPARATELY IN ADDITION TO THE CODE FOR PRIMARY PROCEDURE) BRIEF EMOTIONAL/BEHAVIORA 2018 L ASSESSMENT (EG, DEPRESSION INVENTORY, ATTENTION-DEFICIT/H YPERACTIVITY DISORDER [ADHD] SCALE), WITH SCORING AND DOCUMENTATION, PER STANDARDIZED INSTRUMENT PSYCHOTHERAPY, 60 // Do D MINUTES WITH 2018 PATIENT PSYCHOTHERAPY, 60 /10/ Do D MINUTES WITH 2018 PATIENT INTERACTIVE COMPLEXITY (LIST 2017 SEPARATELY IN ADDITION TO THE CODE FOR PRIMARY PROCEDURE) BRIEF EMOTIONAL/BEHAVIORA 2017 L ASSESSMENT (EG, DEPRESSION INVENTORY, ATTENTION-DEFICIT/H YPERACTIVITY DISORDER [ADHD] SCALE), WITH SCORING AND DOCUMENTATION, PER STANDARDIZED INSTRUMENT INTERACTIVE COMPLEXITY (LIST 2017 SEPARATELY IN ADDITION TO THE CODE FOR PRIMARY PROCEDURE) INTERACTIVE COMPLEXITY (LIST 2017 SEPARATELY IN ADDITION TO THE CODE FOR PRIMARY PROCEDURE) INTERACTIVE COMPLEXITY (LIST 2017 SEPARATELY IN ADDITION TO THE CODE FOR PRIMARY PROCEDURE) PSYCHOTHERAPY, 60 // Do D MINUTES WITH 2018 PATIENT PSYCHOTHERAPY, 60 06/01/ Do D MINUTES WITH 2018 PATIENT INTERACTIVE COMPLEXITY (LIST 2017 SEPARATELY IN ADDITION TO THE CODE FOR PRIMARY PROCEDURE) PSYCHOTHERAPY, 60 05/18/ Do D MINUTES WITH 2018 PATIENT PSYCHOTHERAPY, 60 05/11/ Do D MINUTES WITH 2018 PATIENT BRIEF EMOTIONAL/BEHAVIORA 2018 L ASSESSMENT (EG, DEPRESSION INVENTORY, ATTENTION-DEFICIT/H YPERACTIVITY DISORDER [ADHD] SCALE), WITH SCORING AND DOCUMENTATION, PER STANDARDIZED INSTRUMENT INTERACTIVE COMPLEXITY (LIST 2018 SEPARATELY IN ADDITION TO THE CODE FOR PRIMARY PROCEDURE) INTERACTIVE COMPLEXITY (LIST 2018 SEPARATELY IN ADDITION TO THE CODE FOR PRIMARY PROCEDURE) BRIEF EMOTIONAL/BEHAVIORA 2018 L ASSESSMENT (EG, DEPRESSION INVENTORY, ATTENTION-DEFICIT/H YPERACTIVITY DISORDER [ADHD] SCALE), WITH SCORING AND DOCUMENTATION, PER STANDARDIZED INSTRUMENT INTERACTIVE COMPLEXITY (LIST 2018 SEPARATELY IN ADDITION TO THE CODE FOR PRIMARY PROCEDURE) INTERACTIVE COMPLEXITY (LIST 2017 SEPARATELY IN ADDITION TO THE CODE FOR PRIMARY PROCEDURE) BRIEF EMOTIONAL/BEHAVIORA 2018 L ASSESSMENT (EG, DEPRESSION INVENTORY, ATTENTION-DEFICIT/H YPERACTIVITY DISORDER [ADHD] SCALE), WITH SCORING AND DOCUMENTATION, PER STANDARDIZED INSTRUMENT INTERACTIVE COMPLEXITY (LIST 2018 SEPARATELY IN ADDITION TO THE CODE FOR PRIMARY PROCEDURE) UNLISTED SPECIAL SERVICE, PROCEDURE 2018 OR REPORT INTERACTIVE COMPLEXITY (LIST 2017 SEPARATELY IN ADDITION TO THE CODE FOR PRIMARY PROCEDURE) INTERACTIVE COMPLEXITY (LIST 2018 SEPARATELY IN ADDITION TO THE CODE FOR PRIMARY PROCEDURE) INTERACTIVE COMPLEXITY (LIST 2018 SEPARATELY IN ADDITION TO THE CODE FOR PRIMARY PROCEDURE) BRIEF EMOTIONAL/BEHAVIORA 2018 L ASSESSMENT (EG, DEPRESSION INVENTORY, ATTENTION-DEFICIT/H YPERACTIVITY DISORDER [ADHD] SCALE), WITH SCORING AND DOCUMENTATION, PER STANDARDIZED INSTRUMENT PSYCHOTHERAPY, 60 12/01/ Do D MINUTES WITH 2018 PATIENT PSYCHOTHERAPY, 60 11/17/ Do D MINUTES WITH 2018 PATIENT PSYCHOTHERAPY, 60 11/10/ Do D MINUTES WITH 2018 PATIENT BRIEF EMOTIONAL/BEHAVIORA 2018 L ASSESSMENT (EG, DEPRESSION INVENTORY, ATTENTION-DEFICIT/H YPERACTIVITY DISORDER [ADHD] SCALE), WITH SCORING AND DOCUMENTATION, PER STANDARDIZED INSTRUMENT PSYCHOTHERAPY, 60 11/04/ Do D MINUTES WITH 2018 PATIENT PSYCHOTHERAPY, 60 10/22/ Do D MINUTES WITH 2018 PATIENT PSYCHOTHERAPY, 30 10/21/ Do D MINUTES WITH 2018 PATIENT WHEN PERFORMED WITH AN EVALUATION AND MANAGEMENT SERVICE (LIST SEPARATELY IN ADDITION TO THE CODE FOR PRIMARY PROCEDURE) PSYCHOTHERAPY, 60 10/15/ Do D MINUTES WITH 2018 PATIENT PSYCHOTHERAPY, 60 10/07/ Do D MINUTES WITH 2018 PATIENT BRIEF EMOTIONAL/BEHAVIORA 2018 L ASSESSMENT (EG, DEPRESSION INVENTORY, ATTENTION-DEFICIT/H YPERACTIVITY DISORDER [ADHD] SCALE), WITH SCORING AND DOCUMENTATION, PER STANDARDIZED INSTRUMENT PSYCHOTHERAPY, 60 10/01/ Do D MINUTES WITH 2018 PATIENT PSYCHOTHERAPY, 60 09/25/ Do D MINUTES WITH 2018 PATIENT FAMILY PSYCHOTHERAPY 2018 (WITHOUT THE PATIENT PRESENT), 50 MINUTES PSYCHOTHERAPY, 60 09/10/ Do D MINUTES WITH 2018 PATIENT PSYCHOTHERAPY, 60 08/27/ Do D MINUTES WITH 2017 PATIENT PSYCHOTHERAPY, 60 08/17/ Do D MINUTES WITH 2017 PATIENT PSYCHOTHERAPY, 60 08/12/ Do D MINUTES WITH 2017 PATIENT PSYCHOTHERAPY, 60 07/27/ Do D MINUTES WITH 2017 PATIENT PSYCHIATRIC DIAGNOSTIC 2017 EVALUATION IMMUNIZATION ADMINISTRATION 2016 (INCLUDES PERCUTANEOUS, INTRADERMAL, SUBCUTANEOUS, OR INTRAMUSCULAR INJECTIONS); EACH ADDITIONAL VACCINE (SINGLE OR COMBINATION VACCINE/TOXOID) INFECTIOUS AGENT DETECTION BY 2016 NUCLEIC ACID (DNA OR RNA), MULTIPLE ORGANISMS; DIRECT PROBE(S) TECHNIQUE UNLISTED SPECIAL SERVICE, PROCEDURE 2016 OR REPORT THERAPEUTIC,PROPHYL ACTIC,OR DIAGNOSTIC 2015 INJECTION (SPECIFY SUBSTANCE/DRUG);EA ADDITIONAL SEQUENTIAL INTRAVENOUS PUSH OF A NEW SUBSTANCE/DRUG (LIST SEPARATELY IN ADDITION TO CODE FOR PRIMARY PROCEDURE) INFECTIOUS AGENT ANTIGEN DETECTION 2013 BY IMMUNOASSAY WITH DIRECT OPTICAL (IE, VISUAL) OBSERVATION; STREPTOCOCCUS, GROUP A NONINVASIVE EAR OR oD PULSE OXIMETRY FOR 2013 OXYGEN SATURATION; SINGLE DETERMINATION ORTHOTIC(S) MANAGEMENT AND 2014 TRAINING (INCLUDING ASSESSMENT AND FITTING WHEN NOT OTHERWISE REPORTED),UPPER EXTREMITY(IES),LOWE R EXTREMITY(IES) AND/OR TRUNK,INITIAL ORTHOTIC(S) ENCOUNTER,EACH 15 MINUTES APPLICATION OF FINGER SPLINT; 2013 STATIC WRIST HAND FINGER Do D ORTHOSIS, WITHOUT 2013 JOINT(S), PREFABRICATED ITEM THAT HAS BEEN TRIMMED, BENT, MOLDED, ASSEMBLED, OR OTHERWISE CUSTOMIZED TO FIT A SPECIFIC PATIENT BY AN INDIVIDUAL WITH EXPERTISE APPLICATION OF FINGER SPLINT; 2012 STATIC DETERMINATION OF REFRACTIVE STATE 2011 DETERMINATION OF REFRACTIVE STATE 2010 DETERMINATION OF REFRACTIVE STATE 2010 OPHTHALMOLOGICAL SERVICES: MEDICAL 2009 EXAMINATION AND EVALUATION WITH INITIATION OF DIAGNOSTIC AND TREATMENT PROGRAM; COMPREHENSIVE, NEW PATIENT, 1 OR MORE VISITS PRESCRIPTION OF OPTICAL AND 2008 PHYSICAL CHARACTERISTICS OF AND FITTING OF CONTACT LENS, WITH MEDICAL SUPERVISION OF ADAPTATION; CORNEAL LENS, BOTH EYES, EXCEPT FOR APHAKIA DETERMINATION OF REFRACTIVE STATE 2008 ELECTROCARDIOGRAM, oD ROUTINE ECG WITH AT 2008 LEAST 12 LEADS; WITH INTERPRETATION AND REPORT COLLECTION OF VENOUS BLOOD BY 2007 VENIPUNCTURE HEPATITIS A VACCINE (HEPA), 2007 PEDIATRIC/ADOLESCEN T DOSAGE-2 DOSE SCHEDULE, FOR INTRAMUSCULAR USE TEMPERATURE GRADIENT STUDIES 2007 OTHER ESOPHAGOSCOPY 2007 LARYNGOSCOPY AND OTHER TRACHEOSCOPY 2007 REMOVAL OF INTRALUMINAL 2007 FOREIGN BODY FROM ESOPHAGUS WITHOUT INCISION SPECIAL REPORTS SUCH INSURANCE 2005 FORMS, MORE THAN THE INFORMATION CONVEYED IN THE USUAL MEDICAL COMMUNICATIONS OR STANDARD REPORTING FORM EDUCATIONAL SUPPLIES, SUCH 2002 BOOKS, TAPES, AND PAMPHLETS, FOR THE PATIENT'S EDUCATION AT COST TO PHYSICIAN OR OTHER QUALIFIED HEALTH BRIDGE OPENER PNEUMOCOCCAL CONJUGATE VACCINE, 2002 7 VALENT, FOR INTRAMUSCULAR USE VENIPUNCTURE,AGE 3 oD YEARS/OLDER,NECESSI 2001 TATING THE SKILL OF A PHYSICIAN/OTHER QUALIFIED HEALTH BRIDGE OPENER (SEP PROC),FOR DIAGNOSTIC/THERAPEU TIC PURPOSES (NOT TO BE USED FOR ROUTINE VENIPUNCTURE) VARICELLA VIRUS VACCINE ([place]), 2001 LIVE, FOR SUBCUTANEOUS USE EDUCATIONAL SUPPLIES, SUCH 2001 BOOKS, TAPES, AND PAMPHLETS, FOR THE PATIENT'S EDUCATION AT COST TO PHYSICIAN OR OTHER QUALIFIED HEALTH BRIDGE OPENER CULTURE, BACTERIAL; STOOL, AEROBIC, 2001 WITH ISOLATION AND PRELIMINARY EXAMINATION (EG, NATAN, ARBEN), SALMONELLA AND SHIGELLA SPECIES PNEUMOCOCCAL CONJUGATE VACCINE, 2001 7 VALENT, FOR INTRAMUSCULAR USE CATHETERIZATION, URETHRA; SIMPLE 2000 Social History Combined list of available smoking, tobacco, and other social history from [facility]. Social History Type Response Date Comment Source This section is an empty social history section. DoD
--- OUTSIDE RECORDS SUMMARY | 2022-06-30 23:37 | XMS_ITS ---
:2000 Author Care Team Providers Name Role Phone Mariela Almeida Primary Care Provider Unavailable Allergies None recorded. Medications Name Status Start Date Stop Date ? ? fluoxetine 10 mg tablet Active ? Not avai lable Take 1 tablet every day by oral route. Xanax 0.5 mg tablet Active ? Not availabl e Take 1 tablet 3 times a day by oral route as needed. Problems None recorded. Procedures None recorded. Results Lab Results Date Name Specimen Result Interpretation Description Value Range Status Address ? 04/10/2020 CBC W/ Auto ? Wbc 5.4 3.4-10.8 Final [facility] Diff x10e3/uL [facility] [address] [facility] ? ? ? Rbc 4.69 3.77-5.28 Final [facility] x10e6/uL x10e6/uL ([facility]): [address] [facility] ? ? ? Hemoglobin 13.5 g/dL 11.1-15.9 Final [facility] g/dL ([facility]): [address] [facility] ? ? ? Hematocrit 39.8 % 34.0-46.6 Final [facility] % ([facility]): [address] [facility] ? ? ? Mcv 85 fL 79-97 fL Final [facility] ([facility]): [address] [facility] ? ? ? Mch 28.8 pg 26.6-33.0 Final [facility] p pg ([facility]): [address] [facility] ? ? ? Mchc 33.9 g/dL 31.5-35.7 Final [facility] g/dL ([facility]): [address] [facility] ? ? ? Rdw 12.0 % 11.7-15.4 Final [facility] % ([facility]): [address] [facility] ? ? ? Platelets 358 150-450 Final [facility] r[facility] x10e3/uL x10e3/uL ([place]): [address], [place] ? ? ? Neutrophil 52 % not Final [facility] r[facility] s estab. % ([place]): [address], [place] ? ? ? Lymphs 27 % not Final [facility] estab. % ([place]): [address], [place] ? ? ? Monocytes 12 % not Final [facility] p estab. % ([place]): [address], [place] ? ? ? Eos 8 % not Final [facility] estab. % ([place]): [address], [place] ? ? ? Basos 1 % not Final [facility] estab. % ([place]): [address], [place] ? ? ? Immature sheriffs detective ? Cancelled [facility] Cells ([place]): [address], [place] ? ? ? Neutrophil 2.8 1.4-7.0 Final [facility] s x10e3/uL x10e3/uL [facility] (Absolute) [address], [place] ? ? ? Lymphs 1.4 0.7-3.1 Final [facility] (Absolute) x10e3/uL x10e3/uL ([facility] [address], [place] ? ? ? Monocytes( 0.6 0.1-0.9 Final [facility] absolute) x10e3/uL x10e3/uL ([facility]): [address], [place] ? ? ? Eos 0.4 0.0-0.4 Final [facility] (Absolute) x10e3/uL x10e3/uL ([facility] [address], [place] ? ? ? Baso 0.1 0.0-0.2 Final [facility] (Absolute) x10e3/uL x10e3/uL ([facility] [address], [place] ? ? ? Immature 0 % not Final [facility] Granulocyte estab. % ([facility]): s [address], [place] ? ? ? Immature 0.0 0.0-0.1 Final [facility] p Grans (Abs) x10e3/uL x10e3/uL ( [place]): [address], [place] ? ? ? Nrbc sheriffs detective ? Cancelled [facility] ([place]): [address], [place] ? ? ? Hematology sheriffs detective ? [facility]ancelled [facility] Comments: [facility] [address] [facility] 04/10/2020 CMP, Serum ? Glucose 93 mg/dL 65-99 Final [facility] or Plasma mg/dL ([facility]): [address] [facility] ? ? ? Bun 6 mg/dL 6-20 Final [facility] mg/dL ([facility]): [address] [facility] ? ? ? Creatinine 0.69 0.57-1.00 Final [facility] mg/dL mg/dL ([facility]): [address] [facility] [place] ? ? ? eGFR If 127 >59 Final [facility] Nonafricn mL/min/1. mL/min/1. ( [place]): AM [address] [facility] ? ? ? eGFR If 146 >59 Final [facility] Africn AM mL/min/1. mL/min/1. ( [place]): [address] [facility] ? ? ? BUN/creati 9 9-23 Final [facility] nine Ratio ([facility]): [address] [facility] ? ? ? Sodium 141 134-144 Final [facility] mmol/L mmol/L ([facility]): [address] [facility] ? ? ? Potassium 4.3 3.5-5.2 Final [facility] mmol/L mmol/L ([facility]): [address] [facility] ? ? ? Chloride 103 96-106 Final [facility] mmol/L mmol/L ([facility]): [address] [facility] ? ? ? Carbon 23 mmol/L 20-29 Final [facility] p Dioxide, mmol/L ([facility]): Total [address] [facility] ? ? ? Calcium 9.2 mg/dL 8.7-10.2 Final [facility] mg/dL ([facility]): [address] [facility] ? ? ? Protein, 6.6 g/dL 6.0-8.5 Final [facility] Total g/dL ([facility]): [address] [facility] ? ? ? Albumin 4.0 g/dL 3.9-5.0 Final [facility] g/dL ([facility]): [address] [facility] ? ? ? Globulin, 2.6 g/dL 1.5-4.5 Final [facility] Total g/dL ([facility]): [address] [facility] [place] ? ? ? A/g Ratio 1.5 1.2-2.2 Final [facility] r[facility] ([facility]): [address] [facility] [place] ? ? ? Bilirubin, 0.7 mg/dL 0.0-1.2 Final [facility] Total mg/dL ([facility]): [address] [facility] [place] ? ? ? Alkaline 74 IU/L 39-117 Final [facility] p Phosphatase IU/L ([facility]): [address] [facility] ? ? ? Ast (Sgot) 26 IU/L 0-40 IU/L Final [facility] ([facility]): [address] [facility] ? ? Above Alt (Sgpt) 33 IU/L 0-32 IU/L Final [facility] High ([facility]): Normal [address] [facility] 04/10/2020 Lipid Panel, ? Cholestero 164 mg/dL 100-16 9 Final [facility] Serum l, Total mg/dL ([facility]): [address] [facility] ? ? Above Triglyceri 106 mg/dL 0-89 Final [facility] High [place] mg/dL ([facility]): Normal [address] [facility] ? ? ? HDL 40 mg/dL >39 mg/dL Final [facility] Cholesterol ([facility]): [address] [facility] ? ? ? VLDL 21 mg/dL 5-40 Final [facility] Cholesterol mg/dL ([facility]): Rickey [address] [facility] ? ? ? LDL 103 mg/dL 0-109 Final [facility] Cholesterol mg/dL ([facility]): Calc [address] [facility] ? ? ? Comment: sheriffs detective ? Cancelled [facility] ([facility]): [address] [facility] 04/10/2020 CT + NG + ? Chlamydia tnp ? Cancel led [facility] TV, DNA, by JUDITH ([facility]): Urine/swab [address] [facility] ? ? ? Gonococcus tnp ? Cancelled [facility] by JUDITH ([facility]): [address] [facility] ? ? ? Trich Vag tnp ? Cancelled [facility] by JUDITH ([facility] n): [address] [facility] [place] ? ? ? Pdf sheriffs detective ? Cancelled [facility] ([facility] n): [address], [place] 04/10/2020 HIV 1+2 AB + ? HIV Screen non non Fi nal [facility] HIV 1 P24 4TH reactive reactive ([facility]): Ag, Generation [address], Qualitative Wrfx [place] ar[place]ola Immunoassay, Serum 04/10/2020 Hepatitis C ? Hep C <0.1 s/co 0.0-0.9 Selma l [facility] Ab, Virus Ab ratio s/co ([facility]): Gmejls-lb-xm ratio [address], toff, Serum [facility] or Plasma 04/10/2020 RPR (Rapid ? Rpr non non Final [facility] Plasma reactive reactive ([place]onna arreola): [place]), [address], Serum [place] 04/10/2020 Request ? Request tnp ? Final [facility] Problem Problem ([facility]): [address] [facility] [place] 04/10/2020 No Test ? . comment ? Final [facility] Indicated [facility] [address] [facility] [place] ? ? ? Dear comment ? Final [facility] Doctor, ([facility] on): [address] [facility], [place] Past Encounters None recorded. Social History None recorded. Vaccine List None recorded. Plan of Care Reminders Provider Appointments None recorded. ? ? Lab None recorded. ? ? Referral None recorded. ? ? Procedures None recorded. ? ? Surgeries None recorded. ? ? Imaging None recorded. ? ? Vitals None recorded.
== END 2022-07-01 | disposition home or self-care (01) ==
PROVIDERS: Emergency Provider Internal Medicine
DX: R07.89 Other chest pain (principal)
CPT/HCPCS: 36415; 80053; 84484; 85027; 93005; 99283; 99284